=== PATIENT | male | born 1955 | race Caucasian/White ===

== ENCOUNTER → 2016-11-18 | Outpatient (CLI) | payer OTHER ==
--- NOTE | 2016-11-18 12:30 | RAD ---
Right lower extremity venous Doppler ultrasound History: Right lower extremity swelling. Deep venous thrombosis previous year. Anticoagulated. Comparison: None. Procedure: Color Doppler, spectral Doppler, and grayscale images are obtained with and without compression in the area of the common femoral vein, superficial femoral vein - femoral vein junction, main femoral vein (superficial femoral vein) and popliteal vein. Veins of the proximal calf are also imaged. Findings: There is normal duplex flow, color flow and compressibility of all visualized vein segments. No evidence of deep venous thrombosis is present. Grayscale imaging demonstrates a mildly complex right Govea's cyst measuring 7.9 x 6.4 x 3.2 cm. Impression: 1. No evidence of right lower extremity deep venous thrombosis. 2. Mildly complex right Govea's cyst measuring 7.9 x 6.4 x 3.2 cm.
== END | disposition home or self-care (01) ==
LOC: US 10:59
PROVIDERS: ATTEND Family Medicine
DX: M71.21 Synovial cyst of popliteal space [Baker], right knee (principal); M79.89 Other specified soft tissue disorders; Z86.718 Personal history of other venous thrombosis and embolism
CPT/HCPCS: 93971